=== PATIENT | male | born 1960 | race Caucasian/White ===

== ENCOUNTER 2022-05-23 09:18 | Emergency (ER) | payer MEDICARE ==
[~2022-05-23] VITALS: Ht 167.6 cm; Wt 65.9 kg
[~2022-05-23 09:18] MED LIST: ANTIINFLAMMATORY; ASPIRIN 32325 MG/TAB PO; CHOLESTEROL MED; CLOPIDOGREL PO; IMDUR 30MG30 MG/TAB PO; IMDUR 60MG60 MG/TAB PO; LEVAQUIN 750MG750 MG PO; LIPITOR 80MG80 MG PO; LOPRESSOR 225 MG/TAB PO; LORTAB 5/500 501 TAB; LORTAB 5/500 501 TAB PO; NAPROXEN 3375 MG/TAB PO; NICODERM C14 MG/PATC TOP; NITROQUICK0.4 MG SL; NITROSTAT0.4 MG/TAB SL; NO HOME MEDICATIONS; PLAVIX 75MG TAB75 MG PO; PRINIVIL2.5 MG; PRINZIDE 12.5 M1 TA1 PO; TOPROL XL25 MG PO; TUMS500 MG PO; TUSS PO; VASOTEC 2.2.5 MG/TAB PO; ZANTAC 150MG T150 MG PO; ZOCOR 20MG20 MG PO
[2022-05-23 09:22] VITALS: TEMP 97.9
[2022-05-23 10:13] LABS: BASO # 0.1 K/mm3 (0.0-0.2); BASO % 0.6 % (0.0-2.0); EOS # 0.2 K/mm3 (0.0-0.7); EOS % 2.1 % (0.0-4.0); GRAN # 6.7 K/mm3 (1.4-6.5); GRAN % 76.4 % (42.2-75.2); HEMATOCRIT 36.6 % (42.0-52.0); HEMOGLOBIN 12.5 g/dl (13.5-18.0); LYMPH # 1.3 K/mm3 (1.2-3.4); LYMPH % 14.3 % (20.0-51.0); MEAN CELL VOLUME 86 fl (80.0-100.0); MEAN CORPUSCULAR HEMOGLOBIN 29 pg (27-31); MEAN CORPUSCULAR HGB CONC 34 g/dl (33.0-37.0); MEAN PLATELET VOLUME 9.3 fl (7.4-10.4); MONO # 0.6 K/mm3 (0.1-0.6); MONO % 6.4 % (1.7-9.3); PLATELET COUNT 242 K/mm3 (130-400); RED BLOOD COUNT 4.26 M/mm3 (4.20-5.60); REDCELL DISTRIBUTION WIDTH-CV 13.5 % (11.5-14.5)
[2022-05-23 10:16] LABS: PROTHROMBIN TIME 11.4 SECONDS (9.7-12.8)
[2022-05-23 10:18] LABS: PARTIAL THROMBOPLASTIN TIME 32.1 SECONDS (26.0-37.0)
[2022-05-23 10:26] LABS: TROPONIN-I 0.023 ng/mL (0.00-0.033)
[2022-05-23 10:41] LABS: ALANINE AMINOTRANSFERASE 13 U/L (0-55); ALKALINE PHOSPHATASE 73 U/L (40-150); ANION GAP 13 mmol/L (7-16); AST,SGOT 15 U/L (5-34); BILIRUBIN,TOTAL 0.3 mg/dL (0.2-1.2); BLOOD UREA NITROGEN 54 mg/dL (8-26); CALCIUM 8.6 mg/dL (8.4-10.2); CARBON DIOXIDE 13 mmol/L (23-31); CHLORIDE 109 mmol/L (98-107); CREATININE, serum 4.14 mg/dL (0.72-1.25); GLUCOSE 101 mg/dL (70-99); POTASSIUM 5.4 mmol/L (3.5-4.5); SODIUM 135 mmol/L (136-145); TOTAL PROTEIN 7.4 gm/dL (6.2-8.1)
[2022-05-23 10:45] LABS: ALCOHOL(ethanol),MEDICAL < 10 mg/dL (0-10)
[2022-05-23 16:54] VITALS: BP 175/103; PULSE 73
== END 2022-05-23 16:54 | disposition short-term general hospital (02) ==
LOC: COL.ER 09:18
PROVIDERS: Emergency Medicine
DX: I12.9 Hypertensive chronic kidney disease with stage 1 through stage 4 chronic kidney disease, or unspecified chronic kidney disease (principal); N18.9 Chronic kidney disease, unspecified; I25.10 Atherosclerotic heart disease of native coronary artery without angina pectoris; R94.31 Abnormal electrocardiogram [ECG] [EKG]; R42 Dizziness and giddiness; R41.0 Disorientation, unspecified; Z95.5 Presence of coronary angioplasty implant and graft; Z86.79 Personal history of other diseases of the circulatory system; Z20.822 Contact with and (suspected) exposure to COVID-19
CPT/HCPCS: J2270; J2765; J7030; Q9967